=== PATIENT | female | born 1995 | race Asian ===

== ENCOUNTER 2017-11-04 12:43 | Emergency (ER) | payer OTHER ==
[~2017-11-04] VITALS: Ht 154.9 cm; Wt 63.5 kg
[2017-11-04 13:57] LABS: Urine Bacteria MANY /hpf (None Seen); Urine Blood Negative /uL (Negative); Urine Mucus FEW (None Seen); Urine Specific Gravity 1.014 (1.001-1.035); Urine WBC 73 /hpf (0 - 5)
[2017-11-04 14:45] LABS: Basophils # (auto) 0 uL; Basophils % (auto) 0.6 % (0.0-2.0); Eosinophils # (auto) 0.1 uL; Eosinophils % (auto) 1.8 % (0.0-7.0); Hematocrit 38.3 % (36.0-46.0); Hemoglobin 12.7 g/dL (12.2-16.2); Lymphocytes # (auto) 1.8 uL; Lymphocytes % (auto) 23.6 % (10.0-50.0); Mean Corpuscular Hemoglobin 30.3 pg (28.0-32.0); Mean Corpuscular Hgb Conc. 33.3 g/dL (32.0-36.0); Monocytes # (auto) 0.9 uL; Monocytes % (auto) 11.2 % (0.0-12.0); Neutrophils # (auto) 4.8 uL; Neutrophils % (auto) 62.8 % (37.0-80.0); Platelet Count (auto) 332 10^3/uL (140-450); Red Blood Cells 4.21 10^6/uL (4.0-5.20); Red Cell Distribution Width 13.1 % (11.8-14.3); White Blood Cell 7.6 10^3/uL (4.4-10.8)
[2017-11-04 15:00] LABS: Albumin 3.3 g/dL (3.4-5.0); BUN/Creatinine Ratio 15.3; Bilirubin, Total 0.2 mg/dL (0.2-1.0); Calcium 8.6 mg/dL (8.5-10.1)
[2017-11-04] MEDS ORDERED: cefTRIAXone W LIDOCAINE 1 GM IM IM ONE (15:00)
[2017-11-04 16:06] VITALS: BP 123/69
[2017-11-04] MEDS ORDERED: LIDOCAINE 1% HCL (LOCAL ANESTH.) INJ 20ML MDV ONE (16:12)
[2017-11-04] MEDS ORDERED: cefTRIAXone SOD 1,000 MG VL ONE (16:13)
== END 2017-11-04 16:06 | disposition home or self-care (01) ==
LOC: ER 12:43
DX: N39.0 Urinary tract infection, site not specified (principal); N20.0 Calculus of kidney; K21.9 Gastro-esophageal reflux disease without esophagitis
CPT/HCPCS: 36415; 74176; 80053; 81001; 81025; 83690; 85025; 96372; 99285; J0696; J2001